=== PATIENT | female | born 1985 | race Two or more races ===

== ENCOUNTER 2020-08-06 14:51 | Emergency (ER) | payer OTHER ==
[~2020-08-06] VITALS: Ht 154.9 cm; Wt 70.3 kg
== END 2020-08-06 20:43 | disposition home or self-care (01) ==
LOC: ER 14:51
DX: S05.11XA Contusion of eyeball and orbital tissues, right eye, initial encounter (principal); M54.2 Cervicalgia; W22.8XXA Striking against or struck by other objects, initial encounter; Y93.89 Activity, other specified; Y92.413 State road as the place of occurrence of the external cause; Y99.8 Other external cause status; Z03.818 Encounter for observation for suspected exposure to other biological agents ruled out